=== PATIENT | male | born 1985 | race Caucasian/White ===

== ENCOUNTER 2017-02-27 19:31 | Emergency (ER) | payer SELFPAY ==
[2017-02-27 19:36] VITALS: RESP 16
--- NOTE | 2017-02-27 20:28 | EDPHY ---
H & P Smoking Status: Never smoked Time Seen by Provider: 02/27/17 20:06 HPI/ROS: CHIEF COMPLAINT: New onset left wrist drop HISTORY OF PRESENT ILLNESS: 31-year-old [id number] male states that when he awoke yesterday he noticed partial wrist drop and decreased sensation to the left 3rd 4th 5th digits. This has progressively improved throughout the day. No trauma. No pain. No discoloration. The prior night he was playing the guitar for a lengthy period of time. No head injury. No gait instability. No slurred speech. No headache. No trauma no fall. No visual disturbance. No neck pain. PHYSICAL EXAM (Prior to examination, patient consented to physical exam, hands were washed and my usual and customary physical exam procedures followed) 1) GENERAL: Well-developed, well-nourished, alert and oriented. Appears to be in no acute distress. 2) HEAD: Normocephalic 3) HEENT: Pupils equal, round, reactive to light bilaterally. 4) LUNGS: Breathing comfortably. 5) MUSCULOSKELETAL: Soft compartments. Normal coloration. 6) SKIN: intact. No signs of infection 7) VASCULAR: pulses and cap refill present are brisk 8) NEUROLOGIC: Ulnar nerve dysfunction noted on exam 9) NEURO: Awake, alert, and oriented to person, place and time. Answers questions appropriately. There were no obvious focal neurologic abnormalities. No cerebellar dysfunction. Normal steady gait. Upper and lower extremities bilaterally with strength 5 / 5, reflexes 2+. 10) NECK: No midline C-spine pain no step-off no effusion full pain-free range of motion which does not reproduce elicit symptoms in his upper extremity DIFFERENTIAL DIAGNOSIS: in no particular order including but not limited to fracture, sprain, compartment syndrome Procedure: Splint A Velcro volar splint was applied by ER senior quality control technician. After application of the splint I returned and re-examined the patient. The splint was adequately immobilizing the joint and distal to the splint the patient's circulation and sensation were intact. Patient shows no signs of compartment syndrome. Was given orthopedic precautions. (Luciana,Emile Young) Constitutional: Initial Vital Signs Temperature (C) 37.0 C 02/27/17 19:34 Heart Rate 87 02/27/17 19:34 Respiratory Rate 16 02/27/17 19:34 Blood Pressure 141/83 H 02/27/17 19:34 O2 Sat (%) 98 02/27/17 19:34 O2 Delivery Mode Room Air Allergies/Adverse Reactions: No Known Allergies Allergy (Unverified 02/27/17 19:33) Home Medications: Medication Instructions Recorded NK [No Known Home Meds] 02/27/17 MDM/Departure - [facility] ED Course/Re-evaluation: I did not see this patient while he was in the emergency department. However his care was discussed with the PA while the patient was in the department. I agree with treatment plan and management (Jorge Recinos) Doubt CVA. Doubt cervical pathology. We discussed more than likely ulnar neuropathy possibly secondary to extended period with arm held in flexion while playing the guitar the night before. Patient describes progressively improving symptoms over the past 24 hours. I have recommended placement in a Velcro volar splint and recommend follow up with Hand surgery and Neurology as he may necessitate further evaluation, may necessitate electric diagnostic studies, may necessitate physiotherapy. He has been given this referral information. He has no complaints of pain. There are no signs of trauma, is no osseous discomfort. Soft compartments. I do not think that x-ray imaging currently indicated absence of trauma or pain. He has been informed that the specific longevity of symptoms is not completely clear at this time and importance of follow-up is stressed on numerous instances. 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 Return to the ER if you develop new or worsening symptoms, definitely if you develop difficulty walking, talking or any other symptoms return to the ER. Referrals: Sterling Gann MD [Medical Doctor] - 03/02/17 (Dr Gann is a hand surgeon)
[2017-02-27 20:49] VITALS: BP 111/84; PULSE 86; TEMP 98.2; O2SAT 96
== END 2017-02-27 20:49 | disposition home or self-care (01) ==
DX: G56.22 Lesion of ulnar nerve, left upper limb (principal)
CPT/HCPCS: L3908